=== PATIENT | male | born 1955 | race Two or more races ===

== ENCOUNTER 2024-10-18 15:12 | Outpatient (RCR) | payer MEDICARE, MEDICAID, SELFPAY | END 2024-10-23 23:59 | disposition home or self-care (01) | LOC: SCTC 15:12 | PROVIDERS: PCP Internal Medicine; Referring Provider Internal Medicine Hematology & Oncology; Visit Provider Internal Medicine Hematology & Oncology | DX: Z45.2 Encounter for adjustment and management of vascular access device (principal); C88.00 Waldenstrom macroglobulinemia not having achieved remission | CPT/HCPCS: 96523; A4216; J1642 ==

== ENCOUNTER → 2024-11-10 | Outpatient (CLI) | payer MEDICARE, MEDICAID, SELFPAY ==
--- NOTE | 2024-11-10 14:30 | ECHO_ITS ---
Transthoracic Echo Report Ht (in): 68 Wt (lb): 160 Exam Location: Echo Lab Status: Preadmit Sales Analytics Manager: Brynn La Indications: Procedure Performed: BP: / HR: Rhythm: Sinus Technical Quality: Fair MEASUREMENTS (Male / Female) Normal Values 2D ECHO LV Diastolic Diameter PLAX 4.2 cm 4.2 - 5.9 / 3.9 - 5.3 cm LV Systolic Diameter PLAX 2.9 cm IVS Diastolic Thickness 1.0 cm 0.6 - 1.0 / 0.6 - 0.9 cm LVPW Diastolic Thickness 1.1 cm 0.6 - 1.0 / 0.6 - 0.9 cm LV Relative Wall Thickness 0.5 LVOT Diameter 1.9 cm LA Volume Index 24.1 cm?/m? 16 - 28 cm?/m? Ascending Aorta Diameter 3.3 cm M-MODE Aortic Root Diameter MM 3.2 cm LA Systolic Diameter MM 3.7 cm LA Ao Ratio MM 1.2 AV Cusp Separation MM 2.5 cm DOPPLER AV Peak Velocity 110.0 cm/s AV Peak Gradient 4.8 mmHg AV Mean Gradient 2.0 mmHg AV Velocity Time Integral 22.0 cm LVOT Peak Velocity 94.6 cm/s LVOT Peak Gradient 3.6 mmHg LVOT Velocity Time Integral 20.2 cm AV Area Cont Eq vti 2.6 cm? AV Area Cont Eq pk 2.4 cm? MV Peak Velocity 77.5 cm/s MV Peak Gradient 2.4 mmHg MV Mean Velocity 43.8 cm/s MV Mean Gradient 1.0 mmHg MV Area PHT 3.8 cm? Mitral E Point Velocity 66.9 cm/s Mitral A Point Velocity 81.5 cm/s Mitral E to A Ratio 0.8 LV E' Lateral Velocity 11.0 cm/s Mitral E to LV E' Lateral Ratio 6.1 LV E' Septal Velocity 7.5 cm/s Mitral E to LV E' Septal Ratio 8.9 FINDINGS Left Ventricle Normal left ventricular size, wall thickness, systolic function with no obvious regional wall motion abnormalities. The ejection fraction is visually estimated at 55-60%. Right Ventricle The right ventricle is normal in size and systolic function. Left Atrium The left atrium is normal by two-dimensional, color flow and Doppler imaging with no structural abnormalities, no thrombus formation present. Right Atrium The right atrium is normal by two-dimensional imaging, color flow and Doppler imaging with no struct ural abnormalities, no thrombus formation present. Atrial Septum The interatrial septum appears normal with no evidence of a shunt. Aorta The aorta is normal by two-dimensional, color flow and Doppler interrogation. Mitral Valve The mitral valve is normal by two-dimensional, color flow and Doppler interrogation. There is mild m itral valve regurgitation. Aortic Valve The aortic valve is trileaflet and normal by two-dimensional, color flow and Doppler interrogation. There is trace aortic valve regurgitation. Tricuspid Valve The tricuspid valve is normal by two-dimensional, color flow and Doppler interrogation. There is tra ce tricuspid valve regurgitation. Pulmonic Valve There is no significant pulmonic valve regurgitation. Vessels The pulmonary artery appears normal. The inferior vena cava pulmonary and hepatic veins appear destin l. Pericardium The pericardium is normal by two-dimensional imaging. There is no significant pericardial effusion. CONCLUSIONS Indication: Anemia Normal LV size and function. Stage I diatolic dysfunction. Estimated EF 55-60% Normal RV size and function. Mild MR. Trace AI, TR. Preston Reagan (Electronically Signed) Final Date: 10 November 2024 19:25
== END | disposition home or self-care (01) ==
LOC: SDIM 14:33
PROVIDERS: PCP Physician Assistant; Referring Provider Internal Medicine Hematology & Oncology; Visit Provider Internal Medicine Hematology & Oncology
DX: I08.3 Combined rheumatic disorders of mitral, aortic and tricuspid valves (principal)
CPT/HCPCS: 93306

== ENCOUNTER 2025-01-18 14:54 | Outpatient (RCR) | payer MEDICARE, MEDICAID, SELFPAY ==
[2024-12-28 15:52] LABS: Basophils % (Auto) 1 % (0-2.5); Eosinophils # (Auto) 0.2 Thou/mm3 (0.0-0.5); Eosinophils % (Auto) 3 % (0-10); Hematocrit 38.5 % (41.0-53.0); Hemoglobin 13.8 g/dL (13.5-16.0); Immature Granulocytes % (Auto) 1 % (0-0); Immature Granulocytes Auto 0.03 Thou/mm3 (0.00-0.00); Lymphocytes % (Auto) 19 % (10-50); Mean Corpuscular HGB Conc 35.8 g/dl (31.0-37.0); Mean Corpuscular Hemoglobin 30.3 pg (25.0-35.0); Mean Corpuscular Volume 85 fL (80-100); Monocytes # (Auto) 0.4 Thou/mm3 (0.0-0.8); Monocytes % (Auto) 8 % (0-12); Neutrophils # (Auto) 3.9 Thou/mm3 (1.8-7.7); Neutrophils % (Auto) 70 % (37-80); Nucleated Red Blood Cell % 0 /100 WBC (0); Platelet Count 176 Thou/mm3 (140-440); RDW Standard Deviation 36.5 fL (35.1-43.9); Red Blood Count 4.55 Miln/mm3 (4.50-5.90); White Blood Count 5.6 Thou/mm3 (3.8-10.6)
[2024-12-28 16:11] LABS: Alanine Aminotransferase 20 U/L (10-49); Albumin, Serum 4.7 gm/dL (3.4-4.8); Albumin/Globulin Ratio 1.5 (1.2-2.2); Alkaline Phosphatase 103 U/L (46-116); Anion Gap 9 (7-16); Aspartate Amino Transferase 13 U/L (0-34); BUN/Creatinine Ratio 33 Ratio (12-20); Bilirubin,Total 0.5 mg/dL (0.3-1.2); Blood Urea Nitrogen 23 mg/dL (9-23); Calcium 9.5 mg/dL (8.3-10.6); Calcium (Corrected) 9.5 mg/dL (8.5-10.1); Carbon Dioxide 27.1 mMol/L (20.0-31.0); Chloride 100 mMol/L (98-107); Creatinine (Component) 0.7 mg/dL (0.6-1.3); Globulin 3.1 gm/dL (2.3-3.5); Glucose 230 mg/dL (74-106); Osmolality,Calculated 282 (275-295); Sodium 136 mMol/L (136-145); Total Protein 7.8 gm/dL (5.7-8.2); eGFR > 60 See Note
[2025-01-07 17:50] LABS: Abnormal protein band 1 0.5 g/dL (NONE DETECTED); Albumin 4.4 g/dL (3.8-4.8); Alpha-1-Globulin 0.2 g/dL (0.2-0.3); Alpha-2-Globulin 0.5 g/dL (0.5-0.9); Beta-1-Globulin 0.5 g/dL (0.4-0.6); Beta-2-globulin 0.2 g/dL (0.2-0.5); Gamma Globulin 1.5 g/dL (0.8-1.7); Immunoglobulin A 75 mg/dL (70-320); Immunoglobulin G 1150 mg/dL (600-1540); Kappa Light Chain, Free 40.9 mg/L (3.3-19.4); Lambda Light Chain, Free 14.2 mg/L (5.7-26.3)
[2025-01-11 06:48] LABS: Beta 2 Microglobulin 2.17 mg/L (< OR = 2.51); Immunoglobulin M 850 mg/dL (50-300); Kappa/Lambda, Free Ratio 2.88 (0.26-1.65); Protein, total, serum 7.3 g/dL (6.1-8.1)
[2025-01-18 16:22] LABS: Misc Send Out* See Sep Rpt
[2025-01-18 16:28] LABS: Basophils % (Auto) 1 % (0-2.5); Eosinophils # (Auto) 0.2 Thou/mm3 (0.0-0.5); Eosinophils % (Auto) 3 % (0-10); Hematocrit 40.3 % (41.0-53.0); Hemoglobin 14.1 g/dL (13.5-16.0); Immature Granulocytes % (Auto) 0 % (0-0); Immature Granulocytes Auto 0.02 Thou/mm3 (0.00-0.00); Lymphocytes # (Auto) 1.2 Thou/mm3 (1.0-4.8); Lymphocytes % (Auto) 18 % (10-50); Mean Corpuscular Hemoglobin 29.7 pg (25.0-35.0); Mean Corpuscular Volume 85 fL (80-100); Monocytes # (Auto) 0.5 Thou/mm3 (0.0-0.8); Monocytes % (Auto) 8 % (0-12); Neutrophils # (Auto) 4.4 Thou/mm3 (1.8-7.7); Neutrophils % (Auto) 70 % (37-80); Nucleated Red Blood Cell % 0 /100 WBC (0); Platelet Count 177 Thou/mm3 (140-440); RDW Standard Deviation 37.7 fL (35.1-43.9); Red Blood Count 4.75 Miln/mm3 (4.50-5.90); White Blood Count 6.3 Thou/mm3 (3.8-10.6)
[2025-01-18 16:44] LABS: Alanine Aminotransferase 22 U/L (10-49); Albumin, Serum 4.9 gm/dL (3.4-4.8); Albumin/Globulin Ratio 1.5 (1.2-2.2); Alkaline Phosphatase 109 U/L (46-116); Anion Gap 11 (7-16); Aspartate Amino Transferase 25 U/L (0-34); BUN/Creatinine Ratio 23 Ratio (12-20); Bilirubin,Total 0.4 mg/dL (0.3-1.2); Blood Urea Nitrogen 18 mg/dL (9-23); Calcium 10.3 mg/dL (8.3-10.6); Calcium (Corrected) 10.3 mg/dL (8.5-10.1); Carbon Dioxide 26.5 mMol/L (20.0-31.0); Chloride 99 mMol/L (98-107); Creatinine (Component) 0.8 mg/dL (0.6-1.3); Globulin 3.2 gm/dL (2.3-3.5); Glucose 170 mg/dL (74-106); Osmolality,Calculated 277 (275-295); Sodium 136 mMol/L (136-145); Total Protein 8.1 gm/dL (5.7-8.2); eGFR > 60 See Note
[2025-01-24 05:03] LABS: Immunoglobulin A 82 mg/dL (70-320); Immunoglobulin G 1213 mg/dL (600-1540)
[2025-01-24 07:08] LABS: Immunoglobulin M 895 mg/dL (50-300)
--- NOTE | 2025-01-30 15:29 | CTCFLWUP_ITS ---
Patient: FAVIAN NUGYEN : 1955 Page 5 of 6 FOLLOW UP NOTE DATE OF SERVICE: 01/18/2025 NAME: FAVIAN NGUYEN ACCOUNT: [id number] : 1955 AGE: 69 INTERVAL HISTORY: ONCOLOGY HISTORY: DIAGNOSIS: Other specified types of non-Hodgkin lymphoma, unspecified site [ICD10] C85.80 DATE OF DIAGNOSIS: STAGE/TNM: TREATMENT HISTORY: Care?Plan Start?Date Cycle Day Intent Rituxan?375?+?Bendamustine?90?Emily 07/15/2023 1 28 Palliative HISTORY OF PRESENT ILLNESS: Patient has the following history. 01/24/2023: WBC 2.9, ANC 2.0, hemoglobin 11.3, MCV 89, platelets 138,000. 9.0, total globulin 4.7, creatinine 0.76. 04/28/2023: WBC 2.0, ANC 1.3, hemoglobin 7.4, MCV 92, platelets 89,000, total protein 10.3, globulin 6.3, creatinine 0.74. 05/19/2023: Hemoglobin 8.5, MCV 92, WBC 1.3, ANC 0.7, platelets 102, total protein 10.1, globulin 6.3, serum IgM level more than 5850, M spike 3.8, 05/29/2023: Serum viscosity 3.4, Quyen direct negative, haptoglobin 270 06/05/2023: Skeletal survey?negative for osteolytic or osteoblastic lesions 06/12/2023: Bone marrow biopsy and aspiration? 06/27/2023: 07/15/2023: Patient received first cycle of chemotherapy. He received Bendamustine on day 1 and day 2. He did not get rituximab to prevent flareup phenomenon. He will be receiving Bendamustine along with rituximab for the second cycle. 07/15/2023: 08/12/2023: IgM 1541, kappa light chains 94.5 M protein 1.8, 08/25/2023: WBC 2.7, ANC 1.9 hemoglobin 10.1, platelets 180,000. 08/26/2023: Mr. Nguyen received second cycle of chemotherapy with rituximab and Bendamustine. 09/22/2023: Hemoglobin 11.9, MCV 93, WBC 3.5, ANC 2.4, platelets 157,000, IgM 917. 09/23/2023: Mr. Nguyen received her cycle of rituximab and Bendamustine 10/20/2023: WBC 3.9, ANC 1.6, hemoglobin 12.9, platelets 165,000, IgM 492. 10/21/2023: Mr. Nguyen received fourth cycle of Bendamustine and rituximab. 11/18/2023: Mr. Nguyen had fifth cycle of Bendamustine rituximab. 12/16/2023: Mr. Nguyen had 6 cycles of Bendamustine and rituximab. 12/15/2023: IgM 268 and kappa light chains at 24.0. 01/01/2024: WBC 2.8, ANC 1.2, hemoglobin 13.4, MCV 86, platelets 191,000 03/05/2024: IgM 224, kappa light chains 22.2, hemoglobin 14.0, MCV 86, WBC 5.1, ANC 3.6, platelets 187,000. 06/28/2024: IgM 270, M protein 0.3, kappa light chains 21.8, hemoglobin 13.8, MCV 89, WBC 3.7, ANC 0.1, platelets 198,000. OTHER MEDICAL HISTORY/CONDITIONS: HTN Diabetes BPH Humberto?inguinal?hernia?repairs-2014 ?Clone Other Med Hx? FAMILY HISTORY: Mother:?Unknown?-?passed?age?93 ?Clone Family Hx? 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 Tobacco?Use:?Denies ETOH?Use:?Denies Drug?Note:?Denies Social?History?Note:?Lives?wtih? ?Clone Social Hx? MEDICATIONS: 1. amlodipine - 10 mg 1 tab Daily 2. carvedilol - 12.5 mg 1 tab Twice a Day 3. Compazine - 10 mg 1 tab As directed 4. dutasteride - 0.5 mg 1 Capsule As directed 5. ferrous sulfate - 325 mg (65 mg iron) 1 tab Daily 6. glipiZIDE - 10 mg 1 tab Twice a Day 7. losartan-hydrochlorothiazide - 100-25 mg 1 tab Daily 8. metFORMIN - 1,000 mg 1 tab Twice a Day 9. multivitamin - 1 tab Continuously 10. tamsulosin - 0.4 mg 1 Capsule Daily 11. Zofran - 8 mg 1 tab Daily?Palabra Meds? Medications Last Reconciled by Paulina Suarez MA on 01/18/2025 ALLERGIES: No Known Drug Allergies REVIEW OF SYSTEMS: A complete 14-point review of systems was performed and is negative except as noted in interval history. PHYSICAL EXAMINATION: VITAL SIGNS: PAIN: 0 - No pain GENERAL APPEARANCE: Appears well, in no apparent distress, appropriately interactive. HEENT: Normocephalic, no temporal wasting, normal conjunctiva, no scleral icterus, normal hearing, lips without lesions, neck normal range of motion. CARDIOVASCULAR: Not assessed. PULMONARY: Normal respiratory effort, no respiratory distress or use of accessory muscles, speaking in full sentences, no tachypnea. EXTREMITIES: No pedal edema or cyanosis. SKIN: Normal skin appearance. NEUROLOGIC: Alert and oriented x4. PSHYCHIATRIC: Appropriate affect, mood normal, behavior normal, intact thought and speech. LABORATORY DATA: I have personally reviewed and interpreted each of the patient?s relevant lab tests, abnormal findings are below: Date 12/28/24 ??GLUCOSE,RANDOM?(mg/dL) 230?H ??BLOOD?UREA?NITROGEN?(mg/dL) 23 ??CREATININE?(mg/dL) 0.70 ??SODIUM?(mmol/L) 136 ??POTASSIUM?(mmol/L) 4.0 ??CHLORIDE?(mmol/L) 100 ??CrCl?(CandG)?(ml/min) 106.07 ??AST/SGOT?(Unit/L) 13 ??ALT/SGPT?(Unit/L) 20 ??ALKALINE?PHOSPHATASE?(Unit/L) 103 ??BILIRUBIN,?TOTAL?(mg/dL) 0.5 ??PROTEIN?TOTAL?(gm/dl) 7.8 ??ALBUMIN,?SERUM?(gm/dl) 4.7 ??GLOBULIN?(gm/dl) 3.1 ??ALBUMIN/GLOBULIN?RATIO 1.5 ??CALCIUM,?SERUM?(mg/dL) 9.5 ??CALCIUM?SERUM?(CORRECTED)?(mg/dL) 9.5 ASSESSMENT/PLAN: 1. Mr. Nguyen continues to remain asymptomatic without any nosebleeds, weakness. Essentially doing well. 2. IgM 270 (70?3 20) 3. CBC is essentially normal. 4. Mr. Nguyen so far for 6 cycles of Bendamustine and rituximab as documented above. 5. His energy levels have dramatically improved. Hemoglobin is normalized. IgM levels are steadily coming down. Denies any nosebleeds. Has good appetite. Ambulating well without any help. Platelets also normalized. 6. First cycle he received single agent Bendamustine. Second cycle the patient had Bendamustine and rituximab. His IgM levels have significantly decreased as documented above. Serum viscosity is also decreased. 7. 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 1. No specific intervention today 2. Continue Chemo-Port flush every 2 months. 3. I will see him back in clinic in 6 months with labs as well as myeloma panel drawn 3 weeks prior to the visit. ORDERS: Cbc,cmp Q immunoglobulin S viscosity RETURN TO CLINIC: 3 weeks BILLING AND COMPLIANCE: I reviewed external records from providers outside my specialty as summarized above. I spent a total of 50 minutes on this patient?s care on the day of their visit excluding time spent related to any billed procedures. This time includes time spent with the patient as well as time spent documenting in the medical record, reviewing patients records and tests, obtaining history, placing orders, communicating with other healthcare professionals, counseling the patient, family or caregiver, and/or care coordination for the diagnoses above. Electronically Signed by: Torrey Omer MD T: 3:27 PM CC: Miriam?(yazmin),? PCP: Referring: Tennille Leach ([email or web address]) This document was completed utilizing speech recognition software. Grammatical errors, random word insertions, pronoun errors, and incomplete sentences are an occasional consequence of this system due to software limitations, ambient noise, and hardware issues. Any formal questions or concerns about the content, text or information contained within the body of this dictation should be directly addressed to the provider for clarification.
== END 2025-01-21 23:59 | disposition home or self-care (01) ==
LOC: SCTC 14:54
PROVIDERS: PCP Physician Assistant; Referring Provider Physician Assistant; Visit Provider Internal Medicine Hematology & Oncology
DX: C88.00 Waldenstrom macroglobulinemia not having achieved remission (principal)
CPT/HCPCS: 36591; 80053; 82232; 82784; 83521; 84155; 84165; 85025; 86334; 99213; A4216; J1642; G0463

== ENCOUNTER → 2025-02-03 | Outpatient (CLI) | payer MEDICARE, MEDICAID, SELFPAY ==
--- NOTE | 2025-02-03 13:30 | ECHO_ITS ---
Transthoracic Echo Report Ht (in): 64 Wt (lb): 160 Exam Location: Echo Lab Status: Preadmit Pump Room Operator: CHRISTELLE Gannon^^^^ Indications: Procedure Performed: BP: 124 / 71 HR: 68 Rhythm: Sinus Technical Quality: Fair MEASUREMENTS (Male / Female) Normal Values 2D ECHO LV Diastolic Diameter PLAX 4.3 cm 4.2 - 5.9 / 3.9 - 5.3 cm LV Systolic Diameter PLAX 2.8 cm IVS Diastolic Thickness 1.0 cm 0.6 - 1.0 / 0.6 - 0.9 cm LVPW Diastolic Thickness 0.8 cm 0.6 - 1.0 / 0.6 - 0.9 cm LV Relative Wall Thickness 0.4 LVOT Diameter 2.0 cm Aortic Root Diameter 3.5 cm LA Systolic Diameter LX 3.5 cm 3.0 - 4.0 / 2.7 - 3.8 cm LA Volume Index 25.8 cm?/m? 16 - 28 cm?/m? Ascending Aorta Diameter 3.0 cm DOPPLER AV Peak Velocity 129.0 cm/s AV Peak Gradient 6.7 mmHg AV Mean Gradient 4.0 mmHg AV Velocity Time Integral 31.3 cm LVOT Peak Velocity 115.0 cm/s LVOT Peak Gradient 5.3 mmHg LVOT Velocity Time Integral 23.6 cm LVOT Cardiac Index 2756.9 cm?/min?m? AV Area Cont Eq vti 2.4 cm? AV Area Cont Eq pk 2.8 cm? MV Area PHT 3.2 cm? MR Peak Velocity 226.0 cm/s MR Peak Gradient 20.4 mmHg Mitral E Point Velocity 72.8 cm/s Mitral A Point Velocity 68.7 cm/s Mitral E to A Ratio 1.1 LV E' Lateral Velocity 9.9 cm/s Mitral E to LV E' Lateral Ratio 7.4 LV E' Septal Velocity 7.7 cm/s Mitral E to LV E' Septal Ratio 9.5 TR Peak Velocity 188.0 cm/s TR Peak Gradient 14.1 mmHg PV Peak Velocity 129.0 cm/s PV Peak Gradient 6.7 mmHg RVOT Peak Velocity 58.4 cm/s FINDINGS Left Ventricle Normal left ventricular size, wall thickness, systolic function with no obvious regional wall motion abnormalities. There is grade I diastolic dysfunction of the left ventricle (impaired relaxation pattern). The left ventricular ejection fraction is normal, estimated at 55-60%. Right Ventricle The right ventricle is normal in size and systolic function. The estimated right ventricular systolic pressure, 15 mmHg. Left Atrium The left atrium is normal by two-dimensional, color flow and Doppler imaging with no structural abnormalities, no thrombus formation present. Right Atrium The right atrium is normal by two-dimensional imaging, color flow and Doppler imaging with no structural abnormalities, no thrombus formation present. Atrial Septum The interatrial septum appears normal with no evidence of a shunt. Aorta The aorta is normal by two-dimensional, color flow and Doppler interrogation. Mitral Valve Mild mitral annular calcification. Trace to mild mitral regurgitation. Aortic Valve Aortic valve sclerosis. Trace to mild aortic valve regurgitation. Tricuspid Valve There is mild tricuspid valve regurgitation. Pulmonic Valve Trivial pulmonic valve regurgitation. Vessels The pulmonary artery appears normal. The inferior vena cava pulmonary and hepatic veins appear normal. Pericardium The pericardium is normal by two-dimensional imaging. There is no significant pericardial effusion. CONCLUSIONS The transthoracic study is normal by two-dimensional, color flow imaging and Doppler interrogation. Normal left ventricular size and function. Approximate ejection fraction is 50-55%. Trace mitral and trace tricuspid regurgitation No wall motion abnormalities Alison Diego (Electronically Signed) Final Date: 03 February 2025 17:03
== END | disposition home or self-care (01) ==
LOC: SDIM 13:01
PROVIDERS: Referring Provider Internal Medicine Hematology & Oncology; Visit Provider Internal Medicine Hematology & Oncology
DX: I08.1 Rheumatic disorders of both mitral and tricuspid valves (principal)
CPT/HCPCS: 93306

== ENCOUNTER 2025-02-15 14:21 | Outpatient (RCR) | payer MEDICARE, MEDICAID, SELFPAY | END 2025-02-21 23:59 | disposition home or self-care (01) | LOC: SCTC 14:21 | PROVIDERS: PCP Internal Medicine; Referring Provider Internal Medicine Hematology & Oncology; Visit Provider Internal Medicine Hematology & Oncology | DX: C88.00 Waldenstrom macroglobulinemia not having achieved remission (principal); C83.00 Small cell B-cell lymphoma, unspecified site | CPT/HCPCS: 99213; G0463 ==

== ENCOUNTER 2025-04-21 14:44 | Outpatient (RCR) | payer MEDICARE, MEDICAID, SELFPAY ==
[2025-03-28 15:55] LABS: Misc Send Out* See Sep Rpt
[2025-03-28 15:59] LABS: Basophils # (Auto) 0.1 Thou/mm3 (0.0-0.2); Basophils % (Auto) 1 % (0-2.5); Eosinophils # (Auto) 0.1 Thou/mm3 (0.0-0.5); Eosinophils % (Auto) 2 % (0-10); Hematocrit 39.3 % (41.0-53.0); Hemoglobin 13.8 g/dL (13.5-16.0); Immature Granulocytes % (Auto) 1 % (0-0); Immature Granulocytes Auto 0.05 Thou/mm3 (0.00-0.00); Lymphocytes # (Auto) 1.3 Thou/mm3 (1.0-4.8); Lymphocytes % (Auto) 23 % (10-50); Mean Corpuscular HGB Conc 35.1 g/dl (31.0-37.0); Mean Corpuscular Hemoglobin 30.3 pg (25.0-35.0); Mean Corpuscular Volume 86 fL (80-100); Monocytes # (Auto) 0.5 Thou/mm3 (0.0-0.8); Monocytes % (Auto) 8 % (0-12); Neutrophils # (Auto) 3.8 Thou/mm3 (1.8-7.7); Neutrophils % (Auto) 65 % (37-80); Nucleated Red Blood Cell % 0 /100 WBC (0); Platelet Count 194 Thou/mm3 (140-440); RDW Standard Deviation 38.3 fL (35.1-43.9); Red Blood Count 4.55 Miln/mm3 (4.50-5.90); White Blood Count 5.9 Thou/mm3 (3.8-10.6)
[2025-03-28 16:21] LABS: Alanine Aminotransferase 16 U/L (10-49); Albumin, Serum 4.6 gm/dL (3.4-4.8); Albumin/Globulin Ratio 1.6 (1.2-2.2); Alkaline Phosphatase 84 U/L (46-116); Anion Gap 10 (7-16); Aspartate Amino Transferase 18 U/L (0-34); BUN/Creatinine Ratio 26 Ratio (12-20); Bilirubin,Total 0.6 mg/dL (0.3-1.2); Blood Urea Nitrogen 21 mg/dL (9-23); Calcium 9.1 mg/dL (8.3-10.6); Calcium (Corrected) 9.1 mg/dL (8.5-10.1); Carbon Dioxide 24.3 mMol/L (20.0-31.0); Chloride 97 mMol/L (98-107); Creatinine (Component) 0.8 mg/dL (0.6-1.3); Globulin 2.9 gm/dL (2.3-3.5); Glucose 117 mg/dL (74-106); Osmolality,Calculated 266 (275-295); Potassium 3.8 mMol/L (3.4-5.1); Sodium 131 mMol/L (136-145); Total Protein 7.5 gm/dL (5.7-8.2); eGFR > 60 See Note
[2025-04-01 13:49] LABS: Immunoglobulin A 68 mg/dL (70-320); Immunoglobulin G 1276 mg/dL (600-1540)
[2025-04-01 22:06] LABS: Abnormal protein band 1 0.6 g/dL (NONE DETECTED); Albumin 4.4 g/dL (3.8-4.8); Alpha-1-Globulin 0.2 g/dL (0.2-0.3); Alpha-2-Globulin 0.6 g/dL (0.5-0.9); Beta-1-Globulin 0.5 g/dL (0.4-0.6); Beta-2-globulin 0.2 g/dL (0.2-0.5); Gamma Globulin 1.6 g/dL (0.8-1.7)
[2025-04-04 07:02] LABS: Beta 2 Microglobulin 1.98 mg/L (< OR = 2.51); Immunoglobulin M 744 mg/dL (50-300); Protein, total, serum 7.5 g/dL (6.1-8.1)
--- NOTE | 2025-04-24 23:55 | CTCFLWUP_ITS ---
Patient: JUAN NGUYEN : 1955 Page 6 of 7 FOLLOW UP NOTE DATE OF SERVICE: 04/21/2025 NAME: JUAN NGUYEN ACCOUNT: [id number] : 1955 AGE: 69 INTERVAL HISTORY: Subjective: Chief Complaint Follow-up for B-cell lymphoma and Waldenstr?m macroglobulinemia after completing 6 cycles of chemotherapy History of Present Illness Juan Mon is a patient with B-cell lymphoma and Waldenstr?m macroglobulinemia who has completed 6 cycles of chemotherapy with Br. The patient remains asymptomatic since the last visit, during which a port flush and labs were ordered. Mr. 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 His IgM has decreased from a previous level of 895 to the current level of 744. This reduction is significant as symptoms typically occur when IgM levels exceed 1000. The patient has not reported any symptoms associated with high IgM levels, such as clots, blurry vision, heart attack, or stroke. The patient's overall health status appears stable, with no new complaints or changes in functioning reported. There is no mention of any recent stressors or life events that may be impacting his condition. Medications and Supplements - Br (chemotherapy) - Completed 6 cycles Review of Systems General: Negative for fever, chills, fatigue, muscle aches, appetite or weight changes. Objective: Laboratory, Imaging, and Diagnostic Test Results - White blood cell count: 5.9 - Hemoglobin: 13.8 g/dL - Platelets: 194 - Immunoglobulin M (IgM): 744 (previously 895) - Immunoglobulin A (IgA): 68 - Immunoglobulin G (IgG): 1276 - Immunofixation serum: IgM-kappa monoclonal band at 0.6 g/dL ONCOLOGY HISTORY: DIAGNOSIS: Other specified types of non-Hodgkin lymphoma, unspecified site [ICD10] C85.80 Waldenstr?m's macroglobulinemia S/p 6 cycle of chemotherapy with Bendamustine and rituximab (07/15/2023 - 12/17/2023) DATE OF DIAGNOSIS: 02/15/2025 STAGE/TNM: B cell lymphoma TREATMENT HISTORY: Care?Plan Start?Date Cycle Day Intent Rituxan?375?+?Bendamustine?90?Emily 07/15/2023 1 28 Palliative HISTORY OF PRESENT ILLNESS: Patient has the following history. 01/24/2023: WBC 2.9, ANC 2.0, hemoglobin 11.3, MCV 89, platelets 138,000. 9.0, total globulin 4.7, creatinine 0.76. 04/28/2023: WBC 2.0, ANC 1.3, hemoglobin 7.4, MCV 92, platelets 89,000, total protein 10.3, globulin 6.3, creatinine 0.74. 05/19/2023: Hemoglobin 8.5, MCV 92, WBC 1.3, ANC 0.7, platelets 102, total protein 10.1, globulin 6.3, serum IgM level more than 5850, M spike 3.8, 05/29/2023: Serum viscosity 3.4, Quyen direct negative, haptoglobin 270 06/05/2023: Skeletal survey?negative for osteolytic or osteoblastic lesions 06/12/2023: Bone marrow biopsy and aspiration? 06/27/2023: 07/15/2023: Patient received first cycle of chemotherapy. He received Bendamustine on day 1 and day 2. He did not get rituximab to prevent flareup phenomenon. He will be receiving Bendamustine along with rituximab for the second cycle. 07/15/2023: 08/12/2023: IgM 1541, kappa light chains 94.5 M protein 1.8, 08/25/2023: WBC 2.7, ANC 1.9 hemoglobin 10.1, platelets 180,000. 08/26/2023: Mr. Nguyen received second cycle of chemotherapy with rituximab and Bendamustine. 09/22/2023: Hemoglobin 11.9, MCV 93, WBC 3.5, ANC 2.4, platelets 157,000, IgM 917. 09/23/2023: Mr. Nguyen received her cycle of rituximab and Bendamustine 10/20/2023: WBC 3.9, ANC 1.6, hemoglobin 12.9, platelets 165,000, IgM 492. 10/21/2023: Mr. Nguyen received fourth cycle of Bendamustine and rituximab. 11/18/2023: Mr. Nguyen had fifth cycle of Bendamustine rituximab. 12/16/2023: Mr. Nguyen had 6 cycles of Bendamustine and rituximab. 12/15/2023: IgM 268 and kappa light chains at 24.0. 01/01/2024: WBC 2.8, ANC 1.2, hemoglobin 13.4, MCV 86, platelets 191,000 03/05/2024: IgM 224, kappa light chains 22.2, hemoglobin 14.0, MCV 86, WBC 5.1, ANC 3.6, platelets 187,000. 06/28/2024: IgM 270, M protein 0.3, kappa light chains 21.8, hemoglobin 13.8, MCV 89, WBC 3.7, ANC 0.1, platelets 198,000. 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 Tobacco?Use:?Denies ETOH?Use:?Denies Drug?Note:?Denies Social?History?Note:?Lives?wtih? MEDICATIONS: 1. amlodipine - 10 mg 1 tab Daily 2. carvedilol - 12.5 mg 1 tab Twice a Day 3. dutasteride - 0.5 mg 1 Capsule As directed 4. glipiZIDE - 10 mg 1 tab Twice a Day 5. losartan-hydrochlorothiazide - 100-25 mg 1 tab Daily 6. metFORMIN - 1,000 mg 1 tab Twice a Day 7. multivitamin - 1 tab Continuously 8. tamsulosin - 0.4 mg 1 Capsule Daily Medications Last Reconciled by Genna Wu MA on 04/21/2025 ALLERGIES: No Known Drug Allergies REVIEW OF SYSTEMS: A complete 14-point review of systems was performed and is negative except as noted in interval history. PHYSICAL EXAMINATION: VITAL SIGNS: Temperature?98, B/P?164/87, Oxygen?Saturation?96% PAIN: 0 - No pain ECOG Performance Status: None GENERAL APPEARANCE: Appears well, in no apparent distress, appropriately interactive. HEENT: Normocephalic, no temporal wasting, normal conjunctiva, no scleral icterus, normal hearing, lips without lesions, neck normal range of motion. CARDIOVASCULAR: Not assessed. PULMONARY: Normal respiratory effort, no respiratory distress or use of accessory muscles, speaking in full sentences, no tachypnea. EXTREMITIES: No pedal edema or cyanosis. SKIN: Normal skin appearance. NEUROLOGIC: Alert and oriented x4. PSHYCHIATRIC: Appropriate affect, mood normal, behavior normal, intact thought and speech. LABORATORY DATA: I have personally reviewed and interpreted each of the patient?s relevant lab tests, abnormal findings are below: Date 01/18/25 03/28/25 ??WHITE?BLOOD?COUNT?(Thou/mm3) 6.3 5.9 ??RED?BLOOD?COUNT?(Miln/mm3) 4.75 4.55 ??HEMOGLOBIN?(gm/dl) 14.1 13.8 ??HEMATOCRIT?(%) 40.3?L 39.3?L ??PLATELET?COUNT?(Thou/mm3) 177 194 ??NEUTROPHILS?%,?AUTO?(%) 70 65 ??LYMPH?%,?AUTO?(%) 18 23 ??NEUTROPHILS,?AUTO?(Thou/mm3) 4.4 3.8 ??GLUCOSE,RANDOM?(mg/dL) 170?H 117?H ??BLOOD?UREA?NITROGEN?(mg/dL) 18 21 ??CREATININE?(mg/dL) 0.80 0.80 ??SODIUM?(mmol/L) 136 131?L ??POTASSIUM?(mmol/L) 4.0 3.8 ??CHLORIDE?(mmol/L) 99 97?L ??CrCl?(CandG)?(ml/min) 91.29 93.13 ??AST/SGOT?(Unit/L) 25 18 ??ALT/SGPT?(Unit/L) 22 16 ??ALKALINE?PHOSPHATASE?(Unit/L) 109 84 ??BILIRUBIN,?TOTAL?(mg/dL) 0.4 0.6 ??PROTEIN?TOTAL?(gm/dl) 8.1 7.5 ??ALBUMIN,?SERUM?(gm/dl) 4.9?H 4.6 ??GLOBULIN?(gm/dl) 3.2 2.9 ??ALBUMIN/GLOBULIN?RATIO 1.5 1.6 ??CALCIUM,?SERUM?(mg/dL) 10.3 9.1 ??CALCIUM?SERUM?(CORRECTED)?(mg/dL) 10.3?H 9.1 ASSESSMENT/PLAN: 1. Mr. Nguyen continues to remain asymptomatic without any nosebleeds, weakness. Essentially doing well. 2. IgM 270 (70?3 20) 3. CBC is essentially normal. 4. Mr. Nguyen so far for 6 cycles of Bendamustine and rituximab as documented above. 5. His energy levels have dramatically improved. Hemoglobin is normalized. IgM levels are steadily coming down. Denies any nosebleeds. Has good appetite. Ambulating well without any help. Platelets also normalized. 6. First cycle he received single agent Bendamustine. Second cycle the patient had Bendamustine and rituximab. His IgM levels have significantly decreased as documented above. Serum viscosity is also decreased. 7. 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 Current lab results show improvement with IgM levels decreasing from 895 to 744. Hemoglobin (13.8), white cell count (5.9), and platelets (194) are within normal range. Immunofixation serum showed IgM- kappa monoclonal band at 0.6 g/dL. The patient remains asymptomatic, which is consistent with the current IgM level below 1000, as symptoms typically occur when IgM is above this threshold. Plan: - Continue monitoring IgM levels and other relevant lab parameters - Schedule follow-up appointments every 3 months - Advise patient to: - Drink plenty of water to prevent antibody clumping - Avoid alcohol and smoking - Control blood pressure - Follow a low-salt diet - Avoid high-salt foods such as pickles, chips, and certain beans - Incorporate beneficial spices like turmeric, garlic, and destin - Educate patient on potential symptoms related to high IgM levels (e.g., clots, blurry vision, heart attack, stroke) and when to seek medical attention ORDERS: Order # Description RETURN TO CLINIC: BILLING AND COMPLIANCE: I reviewed external records from providers outside my specialty as summarized above. I spent a total of 50 minutes on this patient?s care on the day of their visit excluding time spent related to any billed procedures. This time includes time spent with the patient as well as time spent documenting in the medical record, reviewing patients records and tests, obtaining history, placing orders, communicating with other healthcare professionals, counseling the patient, family or caregiver, and/or care coordination for the diagnoses above. Electronically Signed by: {Object.Sanct_ID*PnP.NameFL@M}, {Object.Sanct_ID*PnP.Suffix@U} D: {Object.Sanct_Date} T: {Object.Sanct_Time} CC: Kurt?Meredith?(yazmin),ESTHER PCP: Referring: Kurt Harper ([email or web address]) This document was completed utilizing speech recognition software. Grammatical errors, random word insertions, pronoun errors, and incomplete sentences are an occasional consequence of this system due to software limitations, ambient noise, and hardware issues. Any formal questions or concerns about the content, text or information contained within the body of this dictation should be directly addressed to the provider for clarification.
== END 2025-04-23 23:59 | disposition home or self-care (01) ==
LOC: SCTC 14:44
PROVIDERS: PCP Internal Medicine; Referring Provider Internal Medicine; Visit Provider Internal Medicine Hematology & Oncology
DX: C88.00 Waldenstrom macroglobulinemia not having achieved remission (principal)
CPT/HCPCS: 36591; 80053; 82232; 82784; 84155; 84165; 85025; 86334; 99213; A4216; J1642; G0463

== ENCOUNTER → 2025-05-20 | Outpatient (CLI) | payer MEDICARE, MEDICAID, SELFPAY ==
--- NOTE | 2025-05-20 13:30 | ECHO_ITS ---
Transthoracic Echo Report Ht (in): 64 Wt (lb): 160 Exam Location: Echo Lab Status: Preadmit Cloth Colorer: Daisy Pereira Indications: Procedure Performed: BP: / HR: Technical Quality: Adequate MEASUREMENTS (Male / Female) Normal Values 2D ECHO LV Diastolic Diameter PLAX 5.3 cm 4.2 - 5.9 / 3.9 - 5.3 cm LV Systolic Diameter PLAX 3.6 cm IVS Diastolic Thickness 1.2 cm 0.6 - 1.0 / 0.6 - 0.9 cm LVPW Diastolic Thickness 1.0 cm 0.6 - 1.0 / 0.6 - 0.9 cm LV Relative Wall Thickness 0.4 LVOT Diameter 2.2 cm LA Volume Index 29.4 cm?/m? 16 - 28 cm?/m? Ascending Aorta Diameter 3.0 cm DOPPLER AV Peak Velocity 111.0 cm/s AV Peak Gradient 4.9 mmHg LVOT Peak Velocity 80.5 cm/s LVOT Peak Gradient 2.6 mmHg AV Area Cont Eq pk 2.8 cm? MV Area PHT 3.1 cm? Mitral E Point Velocity 67.4 cm/s Mitral A Point Velocity 71.3 cm/s Mitral E to A Ratio 0.9 LV E' Lateral Velocity 10.1 cm/s Mitral E to LV E' Lateral Ratio 6.7 LV E' Septal Velocity 5.2 cm/s Mitral E to LV E' Septal Ratio 12.9 PV Peak Velocity 124.0 cm/s PV Peak Gradient 6.2 mmHg FINDINGS Left Ventricle Normal left ventricular size and systolic function with no obvious regional wall motion abnormalities. Mild left ventricular hypertrophy. Normal left ventricular diastolic filling pattern for age. The ejection fraction is visually estimated at 55 %. Right Ventricle The right ventricle is normal in size and systolic function. The estimated right ventricular systolic pressure can not be determined due to innadequate Doppler signal. Left Atrium The left atrium is normal by two-dimensional, color flow and Doppler imaging with no structural abnormalities, no thrombus formation present. Right Atrium The right atrium is normal by two-dimensional imaging, color flow and Doppler imaging with no structural abnormalities, no thrombus formation present. Atrial Septum The interatrial septum appears normal with no evidence of a shunt. Aorta The aorta is normal by two-dimensional, color flow and Doppler interrogation. Mitral Valve The mitral valve is normal by two-dimensional, color flow and Doppler interrogation. There is trace mitral regurgitation. Aortic Valve The aortic valve is trileaflet and normal by two-dimensional, color flow and Doppler interrogation. There is no significant aortic valve regurgitation. Tricuspid Valve The tricuspid valve is normal by two-dimensional, color flow and Doppler interrogation. There is no significant tricuspid valve regurgitation. Pulmonic Valve The pulmonic valve is not well visualized. There is no significant pulmonic valve regurgitation. Vessels The pulmonary artery appears normal. The inferior vena cava pulmonary and hepatic veins appear normal. Pericardium The pericardium is normal by two-dimensional imaging. There is no significant pericardial effusion. CONCLUSIONS Indications: Anemia, Unspecified Normal LV. Estimated EF 55%. Normal Diastology RV Normal. Trace MR. No Pericardial Effusion. Rene Patricia (Electronically Signed) Final Date: 23 May 2025 09:48
== END | disposition home or self-care (01) ==
LOC: SDIM 13:05
PROVIDERS: PCP Physician Assistant; Referring Provider Internal Medicine Hematology & Oncology; Visit Provider Internal Medicine Hematology & Oncology
DX: D64.9 Anemia, unspecified (principal); I34.0 Nonrheumatic mitral (valve) insufficiency
CPT/HCPCS: 93306

== ENCOUNTER 2025-07-21 14:46 | Outpatient (RCR) | payer MEDICARE, MEDICAID, SELFPAY ==
[2025-06-28 16:20] LABS: Misc Send Out* See Sep Rpt
[2025-06-28 16:25] LABS: Basophils # (Auto) 0.0 Thou/mm3 (0.0-0.2); Basophils % (Auto) 1 % (0-2.5); Eosinophils # (Auto) 0.2 Thou/mm3 (0.0-0.5); Eosinophils % (Auto) 3 % (0-10); Hematocrit 39.7 % (41.0-53.0); Hemoglobin 13.7 g/dL (13.5-16.0); Immature Granulocytes Auto 0.03 Thou/mm3 (0.00-0.00); Lymphocytes # (Auto) 1.1 Thou/mm3 (1.0-4.8); Lymphocytes % (Auto) 19 % (10-50); Mean Corpuscular HGB Conc 34.5 g/dl (31.0-37.0); Mean Corpuscular Hemoglobin 30.1 pg (25.0-35.0); Mean Corpuscular Volume 87 fL (80-100); Monocytes # (Auto) 0.5 Thou/mm3 (0.0-0.8); Monocytes % (Auto) 9 % (0-12); Neutrophils # (Auto) 4.1 Thou/mm3 (1.8-7.7); Neutrophils % (Auto) 69 % (37-80); Nucleated Red Blood Cell # 0.00 Thou/mm3 (0.00-0.00); Nucleated Red Blood Cell % 0 /100 WBC (0); Platelet Count 222 Thou/mm3 (140-440); RDW Standard Deviation 38.9 fL (35.1-43.9); Red Blood Count 4.55 Miln/mm3 (4.50-5.90); White Blood Count 6.0 Thou/mm3 (3.8-10.6)
[2025-06-28 16:48] LABS: Alanine Aminotransferase 19 U/L (10-49); Albumin, Serum 4.6 gm/dL (3.4-4.8); Albumin/Globulin Ratio 1.8 (1.2-2.2); Alkaline Phosphatase 99 U/L (46-116); Anion Gap 11 (7-16); Aspartate Amino Transferase 13 U/L (0-34); BUN/Creatinine Ratio 25 Ratio (12-20); Bilirubin,Total 0.5 mg/dL (0.3-1.2); Blood Urea Nitrogen 25 mg/dL (9-23); Calcium 9.5 mg/dL (8.3-10.6); Calcium (Corrected) 9.5 mg/dL (8.5-10.1); Carbon Dioxide 24.9 mMol/L (20.0-31.0); Chloride 96 mMol/L (98-107); Creatinine (Component) 1.0 mg/dL (0.6-1.3); Globulin 2.5 gm/dL (2.3-3.5); Glucose 179 mg/dL (74-106); Osmolality,Calculated 272 (275-295); Potassium 4.2 mMol/L (3.4-5.1); Sodium 132 mMol/L (136-145); Total Protein 7.1 gm/dL (5.7-8.2); eGFR > 60 See Note
[2025-07-02 22:06] LABS: Immunoglobulin A 79 mg/dL (70-320); Immunoglobulin G 1196 mg/dL (600-1540); Kappa Light Chain, Free 41.3 mg/L (3.3-19.4); Lambda Light Chain, Free 16.5 mg/L (5.7-26.3)
[2025-07-03 13:48] LABS: Abnormal protein band 1 0.5 g/dL (NONE DETECTED); Albumin 4.5 g/dL (3.8-4.8); Alpha-1-Globulin 0.2 g/dL (0.2-0.3); Alpha-2-Globulin 0.6 g/dL (0.5-0.9); Beta-1-Globulin 0.4 g/dL (0.4-0.6); Beta-2-globulin 0.2 g/dL (0.2-0.5); Gamma Globulin 1.5 g/dL (0.8-1.7)
[2025-07-04 14:39] LABS: Beta 2 Microglobulin 2.17 mg/L (< OR = 2.51)
[2025-07-04 14:40] LABS: Immunoglobulin M 804 mg/dL (50-300); Kappa/Lambda, Free Ratio 2.50 (0.26-1.65)
[2025-07-04 14:43] LABS: Protein, total, serum 7.4 g/dL (6.1-8.1)
--- NOTE | 2025-07-26 00:36 | CTCFLWUP_ITS ---
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 The patient remains asymptomatic since the last visit, during which a port flush and labs were ordered. Mr. 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 His IgM has decreased from a previous level of 895 to the current level of 744. This reduction is significant as symptoms typically occur when IgM levels exceed 1000. The patient has not reported any symptoms associated with high IgM levels, such as clots, blurry vision, heart attack, or stroke. The patient's overall health status appears stable, with no new complaints or changes in functioning reported. There is no mention of any recent stressors or life events that may be impacting his condition. Medications and Supplements - Br (chemotherapy) - Completed 6 cycles Review of Systems General: Negative for fever, chills, fatigue, muscle aches, appetite or weight changes. Objective: Laboratory, Imaging, and Diagnostic Test Results - White blood cell count: 5.9 - Hemoglobin: 13.8 g/dL - Platelets: 194 - Immunoglobulin M (IgM): 744 (previously 895) - Immunoglobulin A (IgA): 68 - Immunoglobulin G (IgG): 1276 - Immunofixation serum: IgM-kappa monoclonal band at 0.6 g/dL ONCOLOGY HISTORY: DIAGNOSIS: Other specified types of non-Hodgkin lymphoma, unspecified site [ICD10] C85.80 Waldenstr?m's macroglobulinemia S/p 6 cycle of chemotherapy with Bendamustine and rituximab (07/15/2023 - 12/17/2023) DATE OF DIAGNOSIS: 02/15/2025 STAGE/TNM: B cell lymphoma TREATMENT HISTORY: Care?Plan Start?Date Cycle Day Intent Rituxan?375?+?Bendamustine?90?Emily 07/15/2023 1 28 Palliative HISTORY OF PRESENT ILLNESS: Patient has the following history. 01/24/2023: WBC 2.9, ANC 2.0, hemoglobin 11.3, MCV 89, platelets 138,000. 9.0, total globulin 4.7, creatinine 0.76. 04/28/2023: WBC 2.0, ANC 1.3, hemoglobin 7.4, MCV 92, platelets 89,000, total protein 10.3, globulin 6.3, creatinine 0.74. 05/19/2023: Hemoglobin 8.5, MCV 92, WBC 1.3, ANC 0.7, platelets 102, total protein 10.1, globulin 6.3, serum IgM level more than 5850, M spike 3.8, 05/29/2023: Serum viscosity 3.4, Quyen direct negative, haptoglobin 270 06/05/2023: Skeletal survey?negative for osteolytic or osteoblastic lesions 06/12/2023: Bone marrow biopsy and aspiration? 06/27/2023: 07/15/2023: Patient received first cycle of chemotherapy. He received Bendamustine on day 1 and day 2. He did not get rituximab to prevent flareup phenomenon. He will be receiving Bendamustine along with rituximab for the second cycle. 07/15/2023: 08/12/2023: IgM 1541, kappa light chains 94.5 M protein 1.8, 08/25/2023: WBC 2.7, ANC 1.9 hemoglobin 10.1, platelets 180,000. 08/26/2023: Mr. Nguyen received second cycle of chemotherapy with rituximab and Bendamustine. 09/22/2023: Hemoglobin 11.9, MCV 93, WBC 3.5, ANC 2.4, platelets 157,000, IgM 917. 09/23/2023: Mr. Nguyen received her cycle of rituximab and Bendamustine 10/20/2023: WBC 3.9, ANC 1.6, hemoglobin 12.9, platelets 165,000, IgM 492. 10/21/2023: Mr. Nguyen received fourth cycle of Bendamustine and rituximab. 11/18/2023: Mr. Nguyen had fifth cycle of Bendamustine rituximab. 12/16/2023: Mr. Nguyen had 6 cycles of Bendamustine and rituximab. 12/15/2023: IgM 268 and kappa light chains at 24.0. 01/01/2024: WBC 2.8, ANC 1.2, hemoglobin 13.4, MCV 86, platelets 191,000 03/05/2024: IgM 224, kappa light chains 22.2, hemoglobin 14.0, MCV 86, WBC 5.1, ANC 3.6, platelets 187,000. 06/28/2024: IgM 270, M protein 0.3, kappa light chains 21.8, hemoglobin 13.8, MCV 89, WBC 3.7, ANC 0.1, platelets 198,000. 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 Tobacco?Use:?Denies ETOH?Use:?Denies Drug?Note:?Denies Social?History?Note:?Lives?wtih? MEDICATIONS: 1. amlodipine - 10 mg 1 tab Daily 2. carvedilol - 12.5 mg 1 tab Twice a Day 3. dutasteride - 0.5 mg 1 Capsule As directed 4. ferrous sulfate - 325 mg (65 mg iron) 1 tab Each Day 5. glipiZIDE - 10 mg 1 tab Twice a Day 6. losartan-hydrochlorothiazide - 100-25 mg 1 tab Daily 7. metFORMIN - 1,000 mg 1 tab Twice a Day 8. multivitamin - 1 tab Continuously 9. tamsulosin - 0.4 mg 1 Capsule Daily Medications Last Reconciled by Genna Greenwood MD on 07/21/2025 ALLERGIES: No Known Drug Allergies REVIEW OF SYSTEMS: A complete 14-point review of systems was performed and is negative except as noted in interval history. PHYSICAL EXAMINATION: VITAL SIGNS: Temperature?98, B/P?162/76, Oxygen?Saturation?95% Weight?171?lbs (Change?since?06/28/25:?-2.8?lbs) PAIN: 0 - No pain ECOG Performance Status: None GENERAL APPEARANCE: Appears well, in no apparent distress, appropriately interactive. HEENT: Normocephalic, no temporal wasting, normal conjunctiva, no scleral icterus, normal hearing, lips without lesions, neck normal range of motion. CARDIOVASCULAR: Not assessed. PULMONARY: Normal respiratory effort, no respiratory distress or use of accessory muscles, speaking in full sentences, no tachypnea. EXTREMITIES: No pedal edema or cyanosis. SKIN: Normal skin appearance. NEUROLOGIC: Alert and oriented x4. PSHYCHIATRIC: Appropriate affect, mood normal, behavior normal, intact thought and speech. LABORATORY DATA: I have personally reviewed and interpreted each of the patient?s relevant lab tests, abnormal findings are below: Date 03/28/25 06/28/25 ??WHITE?BLOOD?COUNT?(Thou/mm3) 5.9 6.0 ??RED?BLOOD?COUNT?(Miln/mm3) 4.55 4.55 ??HEMOGLOBIN?(gm/dl) 13.8 13.7 ??HEMATOCRIT?(%) 39.3?L 39.7?L ??PLATELET?COUNT?(Thou/mm3) 194 222 ??NEUTROPHILS?%,?AUTO?(%) 65 69 ??LYMPH?%,?AUTO?(%) 23 19 ??NEUTROPHILS,?AUTO?(Thou/mm3) 3.8 4.1 ??GLUCOSE,RANDOM?(mg/dL) 117?H 179?H ??BLOOD?UREA?NITROGEN?(mg/dL) 21 25?H ??CREATININE?(mg/dL) 0.80 1.00 ??SODIUM?(mmol/L) 131?L 132?L ??POTASSIUM?(mmol/L) 3.8 4.2 ??CHLORIDE?(mmol/L) 97?L 96?L ??CrCl?(CandG)?(ml/min) 93.13 75.55 ??AST/SGOT?(Unit/L) 18 13 ??ALT/SGPT?(Unit/L) 16 19 ??ALKALINE?PHOSPHATASE?(Unit/L) 84 99 ??BILIRUBIN,?TOTAL?(mg/dL) 0.6 0.5 ??PROTEIN?TOTAL?(gm/dl) 7.5 7.1 ??ALBUMIN,?SERUM?(gm/dl) 4.6 4.6 ??GLOBULIN?(gm/dl) 2.9 2.5 ??ALBUMIN/GLOBULIN?RATIO 1.6 1.8 ??CALCIUM,?SERUM?(mg/dL) 9.1 9.5 ??CALCIUM?SERUM?(CORRECTED)?(mg/dL) 9.1 9.5 ASSESSMENT/PLAN: 1. Mr. Nguyen continues to remain asymptomatic without any nosebleeds, weakness. Essentially doing well. 2. IgM 270 (70?3 20) 3. CBC is essentially normal. 4. Mr. Nguyen so far for 6 cycles of Bendamustine and rituximab as documented above. 5. His energy levels have dramatically improved. Hemoglobin is normalized. IgM levels are steadily coming down. Denies any nosebleeds. Has good appetite. Ambulating well without any help. Platelets also normalized. 6. First cycle he received single agent Bendamustine. Second cycle the patient had Bendamustine and rituximab. His IgM levels have significantly decreased as documented above. Serum viscosity is also decreased. 7. 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 Current lab results show improvement with IgM levels decreasing from 895 to 744. Hemoglobin (13.8), white cell count (5.9), and platelets (194) are within normal range. Immunofixation serum showed IgM- kappa monoclonal band at 0.6 g/dL. The patient remains asymptomatic, which is consistent with the current IgM level below 1000, as symptoms typically occur when IgM is above this threshold. Plan: - Continue monitoring IgM levels and other relevant lab parameters - Schedule follow-up appointments every 3 months - Advise patient to: - Drink plenty of water to prevent antibody clumping - Avoid alcohol and smoking - Control blood pressure - Follow a low-salt diet - Avoid high-salt foods such as pickles, chips, and certain beans - Incorporate beneficial spices like turmeric, garlic, and destin - Educate patient on potential symptoms related to high IgM levels (e.g., clots, blurry vision, heart attack, stroke) and when to seek medical attention ORDERS: Order # Description [id number] CT Scan + Abdomen and Pelvis + Chest + With W/O Contrast [id number] Serum Protein Electrophoresis + Serum Immunofixation Electrophoresis + Free kappa and lambda light chains plus ratio, quantitative + Quant Immunoglobulins + Beta-2 Microglobulin + Urine Protien Electrophoresis + Urine Immunification Electrophoresis [id number] MD Follow Up 6 Month [id number] MD Follow Up 3 Months RETURN TO CLINIC: I reviewed the diagnosis, prognosis, and recommended treatment/procedure options with the patient (and/or their legal financial services representative), including the potential benefits, risks, side effects and alternative therapies. We also discussed the option of no treatment and the possibility of clinical trial participation, if applicable. All questions were addressed, and they demonstrated understanding. They provided informed consent to proceed with the proposed plan of care. BILLING AND COMPLIANCE: I reviewed external records from providers outside my specialty as summarized above. I spent a total of 50 minutes on this patient?s care on the day of their visit excluding time spent related to any billed procedures. This time includes time spent with the patient as well as time spent documenting in the medical record, reviewing patients records and tests, obtaining history, placing orders, communicating with other healthcare professionals, counseling the patient, family or caregiver, and/or care coordination for the diagnoses above. Electronically Signed by: {Object.Sanct_ID*[email or web address]@M}, {Object.Sanct_ID*PnP.Suffix@U} D: {Object.Sanct_Date} T: {Object.Sanct_Time} CC: Kurt?Meredith?(yobany),? PCP: Referring: Tennille Leach ([place]) This document was completed utilizing speech recognition software. Grammatical errors, random word insertions, pronoun errors, and incomplete sentences are an occasional consequence of this system due to software limitations, ambient noise, and hardware issues. Any formal questions or concerns about the content, text or information contained within the body of this dictation should be directly addressed to the provider for clarification.
== END 2025-07-24 23:59 | disposition home or self-care (01) ==
LOC: SCTC 14:46
PROVIDERS: PCP Physician Assistant; Referring Provider Physician Assistant; Visit Provider Internal Medicine Hematology & Oncology
DX: C88.00 Waldenstrom macroglobulinemia not having achieved remission (principal)
CPT/HCPCS: 36591; 80053; 82232; 82784; 83521; 84155; 84165; 85025; 85810; 86334; 99212; A4216; J1642; G0463

== ENCOUNTER → 2025-08-25 | Outpatient (CLI) | payer MEDICARE, MEDICAID, SELFPAY ==
--- NOTE | 2025-08-25 09:30 | ECHO_ITS ---
Transthoracic Echo Report Ht (in): 63 Wt (lb): 146 Exam Location: Echo Lab Status: Preadmit Sales Development Consultant: Yvonne Rosenberg Indications: Procedure Performed: BP: 150 / 77 HR: MEASUREMENTS (Male / Female) Normal Values 2D ECHO LV Diastolic Diameter PLAX 4.5 cm 4.2 - 5.9 / 3.9 - 5.3 cm LV Systolic Diameter PLAX 2.9 cm IVS Diastolic Thickness 1.2 cm 0.6 - 1.0 / 0.6 - 0.9 cm LVPW Diastolic Thickness 0.9 cm 0.6 - 1.0 / 0.6 - 0.9 cm LV Relative Wall Thickness 0.5 LVOT Diameter 1.9 cm LA Volume Index 30.4 cm?/m? 16 - 28 cm?/m? Ascending Aorta Diameter 3.2 cm M-MODE AV Cusp Separation MM 1.4 cm DOPPLER AV Peak Velocity 147.0 cm/s AV Peak Gradient 8.6 mmHg AV Mean Gradient 4.0 mmHg AV Velocity Time Integral 30.0 cm LVOT Peak Velocity 84.4 cm/s LVOT Peak Gradient 2.8 mmHg LVOT Velocity Time Integral 21.1 cm AV Area Cont Eq vti 2.0 cm? AV Area Cont Eq pk 1.6 cm? MV Area PHT 4.2 cm? Mitral E Point Velocity 53.9 cm/s Mitral A Point Velocity 61.8 cm/s Mitral E to A Ratio 0.9 LV E' Lateral Velocity 9.8 cm/s Mitral E to LV E' Lateral Ratio 5.5 LV E' Septal Velocity 6.0 cm/s Mitral E to LV E' Septal Ratio 9.0 TR Peak Velocity 132.0 cm/s TR Peak Gradient 7.0 mmHg PV Peak Velocity 122.0 cm/s PV Peak Gradient 6.0 mmHg FINDINGS Left Ventricle Mild left ventricular hypertrophy. Normal left ventricular size, and systolic function with no obvious regional wall motion abnormalities. Normal left ventricular diastolic filling pattern for age. The ejection fraction is visually estimated at 65 %. Right Ventricle The right ventricle is normal in size and systolic function Left Atrium The left atrium is normal by two-dimensional, color flow and Doppler imaging with no structural abnormalities, no thrombus formation present. Right Atrium The right atrium is normal by two-dimensional imaging, color flow and Doppler imaging with no structural abnormalities, no thrombus formation present. Atrial Septum The interatrial septum appears normal with no evidence of a shunt. Aorta The aorta is normal by two-dimensional, color flow and Doppler interrogation. Mitral Valve The mitral valve is normal by two-dimensional, color flow and Doppler interrogation. Trace mitral regurgitation. Aortic Valve The aortic valve is trileaflet and normal by two-dimensional, color flow and Doppler interrogation. There is no significant aortic valve regurgitation. Tricuspid Valve The tricuspid valve is normal by two-dimensional, color flow and Doppler interrogation. There is no significant tricuspid valve regurgitation. Pulmonic Valve The pulmonic valve is not well visualized. There is no significant pulmonic valve regurgitation. Vessels The pulmonary artery appears normal. The inferior vena cava pulmonary and hepatic veins appear normal. Pericardium The pericardium is normal by two-dimensional imaging. There is no significant pericardial effusion. CONCLUSIONS Indication: Anemia, unspecified Mild LVH.Normal left ventricular size and function. Normal diastology. Estimated EF 65%. Normal right ventricular size and function. Trace mitral regurgitation noted. No significant change since the prior study of 05/20/25 Alison Diego (Electronically Signed) Final Date: 25 August 2025 17:34
== END | disposition home or self-care (01) ==
PROVIDERS: PCP Internal Medicine Hematology & Oncology; Referring Provider Internal Medicine Hematology & Oncology; Visit Provider Internal Medicine Hematology & Oncology
DX: I34.0 Nonrheumatic mitral (valve) insufficiency (principal); D64.9 Anemia, unspecified
CPT/HCPCS: 93306

== ENCOUNTER → 2025-09-13 | Outpatient (CLI) | payer MEDICARE, MEDICAID, SELFPAY ==
--- NOTE | 2025-09-13 15:30 | XR_ITS ---
Examination: CT chest with intravenous contrast CT abdomen with intravenous contrast CT pelvis with intravenous contrast 2-D coronal and sagittal reconstructions Time of exam: September 13, 2025, 1542 hours INDICATIONS: Diagnoses anemia, other specified types of non-Hodgkin's lymphoma, unspecified site, follow-up lymphoma with chemotherapy CTDI: vol (mGy) : 13.1 DLP: (mGycm): 661 Technique: Multiple axial images of the chest, abdomen and pelvis with intravenous contrast, 3.0 mm slice thickness. Images obtained post intravenous injection Isovue 370 60 cc. 2-D sagittal and coronal reconstructions. Low dose protocols were performed. One or more of the following dose reduction techniques were used; automated exposure control, adjustment of the mA and/or KV according to patient size, use of iterative reconstruction technique. Findings: No prior examinations for comparison No thoracic aortic aneurysmal dilatation or dissection No pulmonary artery filling defects. No paratracheal tracheobronchial or bronchopulmonary adenopathy No pneumonia, pulmonary edema, pleural disease or pulmonary nodules No pathologic axillary lymphadenopathy Liver measures 18 cm Negative for splenomegaly No focal liver splenic lesions No gallstones No pancreatic or adrenal mass No renal or ureteral calculi, no hydronephrosis Normal appendix No abdominal or pelvic lymphadenopathy Transverse prostate dimension 5 cm Mild thickening urinary bladder wall Advanced disc narrowing L4-L5 Moderate bilateral hip osteoarthritis IMPRESSION: No mediastinal lymphadenopathy No pneumonia, pulmonary edema, pleural disease or pulmonary nodules Negative for axillary lymphadenopathy Hepatomegaly, 18 cm, negative for splenomegaly No abdominal or pelvic lymphadenopathy Moderate prostatomegaly Mild thickening urinary bladder wall, consider cystitis
== END | disposition home or self-care (01) ==
LOC: SCAT 15:09
PROVIDERS: PCP Family Medicine; Referring Provider Internal Medicine Hematology & Oncology; Visit Provider Internal Medicine Hematology & Oncology
DX: R16.0 Hepatomegaly, not elsewhere classified (principal); N32.89 Other specified disorders of bladder; N40.0 Benign prostatic hyperplasia without lower urinary tract symptoms
CPT/HCPCS: 71260; 74177; A4649; Q9967

== ENCOUNTER 2025-10-17 14:51 | Outpatient (RCR) | payer MEDICARE, MEDICAID, SELFPAY ==
[2025-09-26 16:19] LABS: Basophils # (Auto) 0.1 Thou/mm3 (0.0-0.2); Basophils % (Auto) 1 % (0-2.5); Eosinophils # (Auto) 0.2 Thou/mm3 (0.0-0.5); Eosinophils % (Auto) 3 % (0-10); Hematocrit 40.5 % (41.0-53.0); Hemoglobin 14.5 g/dL (13.5-16.0); Immature Granulocytes Auto 0.03 Thou/mm3 (0.00-0.00); Lymphocytes # (Auto) 1.1 Thou/mm3 (1.0-4.8); Lymphocytes % (Auto) 21 % (10-50); Mean Corpuscular HGB Conc 35.8 g/dl (31.0-37.0); Mean Corpuscular Hemoglobin 30.5 pg (25.0-35.0); Mean Corpuscular Volume 85 fL (80-100); Monocytes # (Auto) 0.4 Thou/mm3 (0.0-0.8); Monocytes % (Auto) 8 % (0-12); Neutrophils # (Auto) 3.6 Thou/mm3 (1.8-7.7); Neutrophils % (Auto) 67 % (37-80); Nucleated Red Blood Cell # 0.00 Thou/mm3 (0.00-0.00); Nucleated Red Blood Cell % 0 /100 WBC (0); Platelet Count 207 Thou/mm3 (140-440); RDW Standard Deviation 37.0 fL (35.1-43.9); Red Blood Count 4.75 Miln/mm3 (4.50-5.90); White Blood Count 5.4 Thou/mm3 (3.8-10.6)
[2025-09-26 16:25] LABS: Alanine Aminotransferase 22 U/L (10-49); Albumin, Serum 4.8 gm/dL (3.4-4.8); Albumin/Globulin Ratio 1.8 (1.2-2.2); Alkaline Phosphatase 112 U/L (46-116); Anion Gap 12 (7-16); Aspartate Amino Transferase 23 U/L (0-34); BUN/Creatinine Ratio 10 Ratio (12-20); Bilirubin,Total 0.4 mg/dL (0.3-1.2); Blood Urea Nitrogen 11 mg/dL (9-23); Calcium 9.5 mg/dL (8.3-10.6); Calcium (Corrected) 9.5 mg/dL (8.5-10.1); Carbon Dioxide 25.5 mMol/L (20.0-31.0); Chloride 97 mMol/L (98-107); Creatinine (Component) 1.1 mg/dL (0.6-1.3); Globulin 2.6 gm/dL (2.3-3.5); Glucose 269 mg/dL (74-106); Osmolality,Calculated 276 (275-295); Potassium 3.8 mMol/L (3.4-5.1); Sodium 134 mMol/L (136-145); Total Protein 7.4 gm/dL (5.7-8.2); eGFR > 60 See Note
[2025-10-01 23:36] LABS: Albumin, Random Urine 100 %; Alpha 1 Globulin, Random Urine 0 %; Alpha 2 Globulin, Random Urine 0 %; Beta Globulin, Random Urine 0 %; Gamma Globulin, Random Urine 0 %; Protein,Total,Random Urine 4 mg/dL (5-25); Protein/Creatinine Ratio 282 mg/g creat (25-148)
[2025-10-02 15:33] LABS: Abnormal protein band 1 0.4 g/dL (NONE DETECTED); Albumin 4.3 g/dL (3.8-4.8); Alpha-1-Globulin 0.2 g/dL (0.2-0.3); Alpha-2-Globulin 0.6 g/dL (0.5-0.9); Beta-1-Globulin 0.6 g/dL (0.4-0.6); Beta-2-globulin 0.2 g/dL (0.2-0.5); Gamma Globulin 1.5 g/dL (0.8-1.7)
[2025-10-03 06:36] LABS: Creatinine, Random Urine 14 mg/dL (20-320); Protein/Creatinine Ratio mg/mg 0.282 (0.025-0.148)
[2025-10-03 06:38] LABS: Protein, total, serum 7.5 g/dL (6.1-8.1)
[2025-10-03 11:20] LABS: Immunoglobulin A 81 mg/dL (70-320); Immunoglobulin G 1162 mg/dL (600-1540)
[2025-10-05 07:36] LABS: Beta 2 Microglobulin 2.09 mg/L (< OR = 2.51); Immunoglobulin M 798 mg/dL (50-300)
--- NOTE | 2025-10-22 23:52 | CTCFLWUP_ITS ---
Patient: JUAN NGUYEN : 1955 Page 7 of 7 FOLLOW UP NOTE DATE OF SERVICE: 10/17/2025 NAME: JUAN NGUYEN ACCOUNT: [id number] : 1955 AGE: 70 INTERVAL HISTORY: Subjective: Well with no new complaints. Patient do not have any recent IgM level. 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 The patient remains asymptomatic since the last visit, during which a port flush and labs were ordered. Mr. 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 His IgM has decreased from a previous level of 895 to the current level of 744. This reduction is significant as symptoms typically occur when IgM levels exceed 1000. The patient has not reported any symptoms associated with high IgM levels, such as clots, blurry vision, heart attack, or stroke. The patient's overall health status appears stable, with no new complaints or changes in functioning reported. There is no mention of any recent stressors or life events that may be impacting his condition. Medications and Supplements - Br (chemotherapy) - Completed 6 cycles Review of Systems General: Negative for fever, chills, fatigue, muscle aches, appetite or weight changes. Objective: Laboratory, Imaging, and Diagnostic Test Results - White blood cell count: 5.9 - Hemoglobin: 13.8 g/dL - Platelets: 194 - Immunoglobulin M (IgM): 744 (previously 895) - Immunoglobulin A (IgA): 68 - Immunoglobulin G (IgG): 1276 - Immunofixation serum: IgM-kappa monoclonal band at 0.6 g/dL ONCOLOGY HISTORY: DIAGNOSIS: Other specified types of non-Hodgkin lymphoma, unspecified site [ICD10] C85.80 Waldenstr?m's macroglobulinemia S/p 6 cycle of chemotherapy with Bendamustine and rituximab (07/15/2023 - 12/17/2023) DATE OF DIAGNOSIS: 02/15/2025 STAGE/TNM: B cell lymphoma TREATMENT HISTORY: Care?Plan Start?Date Cycle Day Intent Rituxan?375?+?Bendamustine?90?Emily 07/15/2023 1 28 Palliative HISTORY OF PRESENT ILLNESS: Patient has the following history. 01/24/2023: WBC 2.9, ANC 2.0, hemoglobin 11.3, MCV 89, platelets 138,000. 9.0, total globulin 4.7, creatinine 0.76. 04/28/2023: WBC 2.0, ANC 1.3, hemoglobin 7.4, MCV 92, platelets 89,000, total protein 10.3, globulin 6.3, creatinine 0.74. 05/19/2023: Hemoglobin 8.5, MCV 92, WBC 1.3, ANC 0.7, platelets 102, total protein 10.1, globulin 6.3, serum IgM level more than 5850, M spike 3.8, 05/29/2023: Serum viscosity 3.4, Quyen direct negative, haptoglobin 270 06/05/2023: Skeletal survey?negative for osteolytic or osteoblastic lesions 06/12/2023: Bone marrow biopsy and aspiration? 06/27/2023: 07/15/2023: Patient received first cycle of chemotherapy. He received Bendamustine on day 1 and day 2. He did not get rituximab to prevent flareup phenomenon. He will be receiving Bendamustine along with rituximab for the second cycle. 07/15/2023: 08/12/2023: IgM 1541, kappa light chains 94.5 M protein 1.8, 08/25/2023: WBC 2.7, ANC 1.9 hemoglobin 10.1, platelets 180,000. 08/26/2023: Mr. Nguyen received second cycle of chemotherapy with rituximab and Bendamustine. 09/22/2023: Hemoglobin 11.9, MCV 93, WBC 3.5, ANC 2.4, platelets 157,000, IgM 917. 09/23/2023: Mr. Nguyen received her cycle of rituximab and Bendamustine 10/20/2023: WBC 3.9, ANC 1.6, hemoglobin 12.9, platelets 165,000, IgM 492. 10/21/2023: Mr. Nguyen received fourth cycle of Bendamustine and rituximab. 11/18/2023: Mr. Nguyen had fifth cycle of Bendamustine rituximab. 12/16/2023: Mr. Nguyen had 6 cycles of Bendamustine and rituximab. 12/15/2023: IgM 268 and kappa light chains at 24.0. 01/01/2024: WBC 2.8, ANC 1.2, hemoglobin 13.4, MCV 86, platelets 191,000 03/05/2024: IgM 224, kappa light chains 22.2, hemoglobin 14.0, MCV 86, WBC 5.1, ANC 3.6, platelets 187,000. 06/28/2024: IgM 270, M protein 0.3, kappa light chains 21.8, hemoglobin 13.8, MCV 89, WBC 3.7, ANC 0.1, platelets 198,000. 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 Tobacco?Use:?Denies ETOH?Use:?Denies Drug?Note:?Denies Social?History?Note:?Lives?wtih? MEDICATIONS: 1. amlodipine - 10 mg 1 tab Daily 2. carvedilol - 12.5 mg 1 tab Twice a Day 3. dutasteride - 0.5 mg 1 Capsule As directed 4. ferrous sulfate - 325 mg (65 mg iron) 1 tab Each Day 5. glipiZIDE - 10 mg 1 tab Twice a Day 6. losartan-hydrochlorothiazide - 100-25 mg 1 tab Daily 7. metFORMIN - 1,000 mg 1 tab Twice a Day 8. multivitamin - 1 tab Continuously 9. tamsulosin - 0.4 mg 1 Capsule Daily Medications Last Reconciled by Genna Greenwood MD on 10/17/2025 ALLERGIES: No Known Drug Allergies REVIEW OF SYSTEMS: A complete 14-point review of systems was performed and is negative except as noted in interval history. PHYSICAL EXAMINATION: VITAL SIGNS: Temperature?97.8, B/P?172/84, Oxygen?Saturation?96% Weight?170?lbs (Change?since?09/26/25:?-0.6?lbs) PAIN: 0 - No pain ECOG Performance Status: 0 - Asymptomatic and fully active GENERAL APPEARANCE: Appears well, in no apparent distress, appropriately interactive. HEENT: Normocephalic, no temporal wasting, normal conjunctiva, no scleral icterus, normal hearing, lips without lesions, neck normal range of motion. CARDIOVASCULAR: Not assessed. PULMONARY: Normal respiratory effort, no respiratory distress or use of accessory muscles, speaking in full sentences, no tachypnea. EXTREMITIES: No pedal edema or cyanosis. SKIN: Normal skin appearance. NEUROLOGIC: Alert and oriented x4. PSHYCHIATRIC: Appropriate affect, mood normal, behavior normal, intact thought and speech. LABORATORY DATA: I have personally reviewed and interpreted each of the patient?s relevant lab tests, abnormal findings are below: Date 06/28/25 09/26/25 ??WHITE?BLOOD?COUNT?(Thou/mm3) 6.0 5.4 ??RED?BLOOD?COUNT?(Miln/mm3) 4.55 4.75 ??HEMOGLOBIN?(gm/dl) 13.7 14.5 ??HEMATOCRIT?(%) 39.7?L 40.5?L ??PLATELET?COUNT?(Thou/mm3) 222 207 ??NEUTROPHILS?%,?AUTO?(%) 69 67 ??LYMPH?%,?AUTO?(%) 19 21 ??NEUTROPHILS,?AUTO?(Thou/mm3) 4.1 3.6 ??GLUCOSE,RANDOM?(mg/dL) 179?H 269?H ??BLOOD?UREA?NITROGEN?(mg/dL) 25?H 11 ??CREATININE?(mg/dL) 1.00 1.10 ??SODIUM?(mmol/L) 132?L 134?L ??POTASSIUM?(mmol/L) 4.2 3.8 ??CHLORIDE?(mmol/L) 96?L 97?L ??CrCl?(CandG)?(ml/min) 75.55 66.44 ??AST/SGOT?(Unit/L) 13 23 ??ALT/SGPT?(Unit/L) 19 22 ??ALKALINE?PHOSPHATASE?(Unit/L) 99 112 ??BILIRUBIN,?TOTAL?(mg/dL) 0.5 0.4 ??PROTEIN?TOTAL?(gm/dl) 7.1 7.4 ??ALBUMIN,?SERUM?(gm/dl) 4.6 4.8 ??GLOBULIN?(gm/dl) 2.5 2.6 ??ALBUMIN/GLOBULIN?RATIO 1.8 1.8 ??CALCIUM,?SERUM?(mg/dL) 9.5 9.5 ??CALCIUM?SERUM?(CORRECTED)?(mg/dL) 9.5 9.5 ASSESSMENT/PLAN: 1. 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 6 cycles of Bendamustine and rituximab as documented above. 2. His energy levels have dramatically improved. Hemoglobin is normalized. IgM levels are steadily coming down. Denies any nosebleeds. Has good appetite. Ambulating well without any help. Platelets also normalized. The patient remains asymptomatic, which is consistent with the current IgM level below 1000, as symptoms typically occur when IgM is above this threshold. Plan: -Last IgM level was at 01/18 at 895 - Advised to do blood work today - Advise patient to: - Drink plenty of water to prevent antibody clumping - Avoid alcohol and smoking - Control blood pressure - Follow a low-salt diet - Avoid high-salt foods such as pickles, chips, and certain beans - Incorporate beneficial spices like turmeric, garlic, and destin - Educate patient on potential symptoms related to high IgM levels (e.g., clots, blurry vision, heart attack, stroke) and when to seek medical attention Patient's IgM level was followed and was found to get 1042 on 10/18/2025 Will start patient on acalabrutinib and refer to hematology with Dr. Fadumo Forte for further management ORDERS: Order # Description [id number] Quant Immunoglobulins [id number] Comprehensive Metabolic Panel - 12 + CBC with Auto Diff [id number] MD Follow Up 3 Months RETURN TO CLINIC: I reviewed the diagnosis, prognosis, and recommended treatment/procedure options with the patient (and/or their legal door to door sales representative), including the potential benefits, risks, side effects and alternative therapies. We also discussed the option of no treatment and the possibility of clinical trial participation, if applicable. All questions were addressed, and they demonstrated understanding. They provided informed consent to proceed with the proposed plan of care. BILLING AND COMPLIANCE: I reviewed external records from providers outside my specialty as summarized above. I spent a total of 50 minutes on this patient?s care on the day of their visit excluding time spent related to any billed procedures. This time includes time spent with the patient as well as time spent documenting in the medical record, reviewing patients records and tests, obtaining history, placing orders, communicating with other healthcare professionals, counseling the patient, family or caregiver, and/or care coordination for the diagnoses above. Electronically Signed by: {Object.Sanct_ID*PnP.NameFL@M}, {Object.Sanct_ID*PnP.Suffix@U} D: {Object.Sanct_Date} T: {Object.Sanct_Time} CC: Kurt?Meredith?(pixleycl),? PCP: Referring: Jordan Jones This document was completed utilizing speech recognition software. Grammatical errors, random word insertions, pronoun errors, and incomplete sentences are an occasional consequence of this system due to software limitations, ambient noise, and hardware issues. Any formal questions or concerns about the content, text or information contained within the body of this dictation should be directly addressed to the provider for clarification.
== END 2025-10-23 23:59 | disposition home or self-care (01) ==
LOC: SCTC 14:51
PROVIDERS: PCP Family Medicine; Referring Provider Family Medicine; Visit Provider Internal Medicine Hematology & Oncology
DX: C88.00 Waldenstrom macroglobulinemia not having achieved remission (principal)
CPT/HCPCS: 36591; 80053; 82232; 82570; 82784; 84155; 84156; 84165; 84166; 85025; 86334; 86335; 99212; A4216; J1642; G0463

== ENCOUNTER 2025-11-14 13:18 | Outpatient (RCR) | payer MEDICARE, MEDICAID, SELFPAY ==
[2025-11-02 16:42] LABS: Misc Send Out* See Sep Rpt
[2025-11-02 17:01] LABS: Uric Acid 1.9 mg/dL (3.7-9.2)
[2025-11-02 17:04] LABS: LDH (Lactate Dehydrogenase) 171 U/L (120-246)
[2025-11-10 06:19] LABS: IgM, Serum* 935 mg/dL (50-300)
== END 2025-11-23 23:59 | disposition home or self-care (01) ==
LOC: SCTC 13:18
PROVIDERS: PCP Family Medicine; Referring Provider Family Medicine; Visit Provider Internal Medicine Hematology & Oncology
DX: C88.00 Waldenstrom macroglobulinemia not having achieved remission (principal)
CPT/HCPCS: 36591; 82784; 83615; 84550; 85810; 96360; A4216; J1642; J7030; J7040